=== PATIENT | female | born 1995 | race Caucasian/White ===

== ENCOUNTER 2017-01-21 16:44 | Emergency (ER) | payer OTHER ==
[2017-01-21 16:53] VITALS: BP 134/85; PULSE 120; BMI 30.1
[2017-01-21] MEDS ORDERED: KETOROLAC TROMETHAMINE 30 MG/1 ML VIAL IM ONE (18:42)
--- NOTE | 2017-01-21 18:42 | PDOC ---
History of Present Illness - General Chief Complaint: Toothache Stated Complaint: INFLAMMATION Time Seen by Provider: 01/21/17 18:28 History Source: Patient Exam Limitations: No Limitations - History of Present Illness Initial Comments: 01/21/17 18:42 This is a 21-year-old female without significant past medical history who presents today with left buccal pain for the past 3 days. She states since that time she's been unable to eat secondary to pain. She states probably 3 or 4 months ago she had similar problem on the right side of her mouth for which she was evaluated and given antibiotics. She reports fevers this morning although she did not check her temperature. Past History - Past Medical History Allergies/Adverse Reactions: Allergies Allergy/AdvReac Type Severity Reaction Status Date / Time No Known Allergies Allergy Verified 01/21/17 16:53 Home Medications: Ambulatory Orders Amox-Tr/K Cl [Augmentin - 875Mg Tablet] 1 tab PO BID #14 tablet 01/21/17 Other medical history: NONE - Suicide/Smoking/Psychosocial Hx Smoking History: Never smoked Hx Alcohol Use: No Drug/Substance Use Hx: No Substance Use Type: None Review of Systems - Review of Systems Able to Perform ROS?: Yes Is the patient limited [place] proficient: No Constitutional: No: Symptoms Reported HEENTM: Yes: See HPI Respiratory: No: Symptoms reported Cardiac (ROS): No: Symptoms Reported ABD/GI: No: Symptoms Reported : No: Symptoms Reported Musculoskeletal: No: Symptoms Reported Integumentary: No: Symptoms Reported Neurological: No: Symptoms reported *Physical Exam - Vital Signs Last Vital Signs Temp Pulse Resp BP Pulse Ox 100.4 F H 120 H 20 134/85 97 01/21/17 16:50 01/21/17 16:50 01/21/17 16:50 01/21/17 16:50 01/21/17 16:50 Medical Decision Making - Medical Decision Making 01/21/17 18:41 A/P: This is a 21-year-old female without significant past medical history who presents today with left buccal pain for the past 3 days. She states since that time she's been unable to eat secondary to pain. She states probably 3 or 4 months ago she had similar problem on the right side of her mouth for which she was evaluated and given antibiotics. She reports fevers this morning although she did not check her temperature. Examination of the oral cavity shows shows mucopurulent drainage into mouth. Left cold region swollen and tender to palpation. Fluctuant mass palpated on the buccal surface adjacent to the left maxilla. Unable to express from fluctuant mass. No tonsillar erythema or exudates noted. Uvula midline. Left TM pearly shaver with appropriate light reflex. Left auditory canal free of erythema and streaking. Diagnosis-oral abscess. I will obtain a CT of the facial bones and prescribed antibiotics as an outpatient. 01/21/17 21:[address] [facility]. There is air noted lateral to left mandible. I will treat patient with Augmentin 875 by mouth twice a day the next 10 days. Patient to follow-up with her primary doctor if symptoms do not improve within the next 3 days. I discussed the physical exam findings, ancillary test results and final diagnoses with the patient. I answered all of the patient's questions. The patient was satisfied with the care received and felt comfortable with the discharge plan and treatment plan. The patient will call her doctor within 96 hours to arrange follow-up and will return to the Emergency Department with any new, persistant or worsening symptoms. *DC/Admit/Observation/Transfer Diagnosis at time of Disposition: Abscess of mouth - Discharge Dispostion Disposition: HOME Condition at time of disposition: Stable Admit: No - Prescriptions Prescriptions: Amox-Tr/K Cl [Augmentin - 875Mg Tablet] 1 tab PO BID #14 tablet - Referrals Referrals: Sherley Scanlon [Primary Care Provider] - - Patient Instructions Additional Instructions: Make an appointment with a dentist to have full oral exam performed. Take Augmentin 875 mg twice a day until all medications are finished. Return to emergency department for any fevers, headache, inability to swallow, severe pain, or any other concerns. Thank you very much for choosing us to provide your acute medical needs.
[2017-01-21] MEDS ORDERED: KETOROLAC TROMETHAMINE 30 MG/1 ML VIAL ONE (18:46)
[2017-01-21 21:16] VITALS: TEMP 98.6
== END 2017-01-21 21:16 | disposition home or self-care (01) ==
LOC: JERFT 16:44
PROC: 3E0233Z Introduction of Anti-inflammatory into Muscle, Percutaneous Approach (ICD-10-PCS; principal; 2017-01-21)
DX: K12.2 Cellulitis and abscess of mouth (principal)
CPT/HCPCS: 70486-TC; 84703; 96372; 99281-25

== ENCOUNTER 2019-04-20 22:21 | Emergency (ER) | payer OTHER ==
[2019-04-20 22:53] VITALS: BP 135/77; PULSE 72; TEMP 98.1; BMI 29.2
--- NOTE | 2019-04-21 01:10 | PDOC ---
History of Present Illness - General Chief Complaint: Pain Stated Complaint: ABD PAIN Time Seen by Provider: 04/21/19 00:58 - History of Present Illness Initial Comments: Ms. Newsome is a 23 y/o female with PMH of gastritis presenting with bilateral flank pain and mid-sternal chest pain that started on Sunday. Reports that she has not had this pain before. Pain is non radiating, constant, and sharp. No pleuritic chest pain. Denies fever/cough/shortness of breath. Denies abdominal pain. Denies dysuria. No recent travel. No sick contacts. No OCPs. Past History - Past Medical History Allergies/Adverse Reactions: Allergies Allergy/AdvReac Type Severity Reaction Status Date / Time No Known Allergies Allergy Verified 04/20/19 22:40 Home Medications: Ambulatory Orders Sulfamethoxazole/Trimethoprim [Bactrim Ds -] 1 tab PO BID #14 tablet 04/21/19 COPD: No - Psycho Social/Smoking Cessation Hx Smoking History: Never smoked Hx Alcohol Use: No Drug/Substance Use Hx: No Substance Use Type: None Review of Systems - Review of Systems Comments:: GENERAL/CONSTITUTIONAL: No fever or chills. No weakness._ HEAD, EYES, EARS, NOSE AND THROAT: No change in vision. No change in hearing. No sore throat._ CARDIOVASCULAR: Reports mid sternal chest pain. No shortness of breath_ RESPIRATORY: Denies cough, hemoptysis_ GASTROINTESTINAL: Reports bilateral flank pain. No nausea, vomiting, diarrhea or constipation._ GENITOURINARY: No dysuria, frequency, or change in urination._ MUSCULOSKELETAL: No joint or muscle swelling or pain. No neck or back pain._ SKIN: No rash_ NEUROLOGIC: No headache, vertigo, loss of consciousness, or change in strength/ sensation._ ENDOCRINE: No increased thirst. No abnormal weight change_ HEMATOLOGIC/LYMPHATIC: No anemia, easy bleeding, or history of blood clots._ ALLERGIC/IMMUNOLOGIC: No hives or skin allergy._ *Physical Exam - Vital Signs Last Vital Signs Temp Pulse Resp BP Pulse Ox 98.1 F 72 18 135/77 100 04/20/19 22:40 04/20/19 22:40 04/20/19 22:40 04/20/19 22:40 04/20/19 22:40 - Physical Exam GENERAL: Awake, alert, and oriented to person/place/time, in no acute distress_ HEAD: No signs of trauma, normoc ephalic, atraumatic _ EYES: PERRLA, EOMI, sclera anicteric, conjunctiva clear_ ENT: Hearing grossly normal, nares patent, oropharynx clear without exudates. No uvular deviation. Moist mucosa_ NECK: Normal ROM, supple, no lymphadenopathy, JVD, or masses_ CHEST: Non reproducible LUNGS: No distress, speaks in full sentences, clear to auscultation bilaterally _ HEART: Regular rate and rhythm, normal S1 and S2, no murmurs appreciated, peripheral pulses normal and equal bilaterally._ ABDOMEN: Soft, TTP bilateral flanks, normoactive bowel sounds. No guarding, no rebound. No masses. EXTREMITIES: Normal inspection, Normal range of motion, no edema. No clubbing or cyanosis_ NEUROLOGICAL: Cranial nerves II through XII grossly intact. Normal speech, normal gait, no focal sensorimotor deficits _ SKIN: Warm, Dry, normal turgor, no rashes or lesions noted_ ED Treatment Course - LABORATORY CBC & Chemistry Diagram: 04/21/19 03:02 04/21/19 03:02 Medical Decision Making - Medical Decision Making 04/21/19 01:29 23F hx of gastritis presenting with bilateral flank pain that started yesterday. -cbc, cmp -ua, ucx, upreg -GI cocktail 04/21/19 05:06 Pt reassessed. Reports feeling better and that she wants to go home. EKG shows NSR, 65 bpm, no ST elevation/depression, QTc 403. Labs reviewed. UA shows signs of UTI. Will plan to d/c home with Bactrim for UTI. Laboratory Tests 04/21/19 04/21/19 04/21/19 03:02 03:02 03:15 WBC 11.2 H RBC 5.12 Hgb 15.0 Hct 45.5 H MCV 88.9 MCH 29.3 MCHC 32.9 RDW 13.8 Plt Count 374 MPV 8.4 Absolute Neuts (auto) 6.4 Neutrophils % 57.2 Lymphocytes % 33.6 Monocytes % 6.7 Eosinophils % 2.1 Basophils % 0.4 Nucleated RBC % 0 Sodium 140 Potassium 3.8 Chloride 106 Carbon Dioxide 23 Anion Gap 10 BUN 10.5 Creatinine 0.8 Est GFR (CKD-EPI)AfAm 120.44 Est GFR (CKD-EPI)NonAf 103.92 Random Glucose 96 Calcium 9.2 Total Bilirubin 0.4 AST 13 L ALT 24 Alkaline Phosphatase 74 Creatine Kinase 80 Troponin I < 0.02 Total Protein 9.2 H Albumin 4.6 Urine Color Urine Appearance Urine pH Ur Specific [place] Urine Protein Urine Glucose (UA) Urine Ketones Urine Blood Urine Nitrite Urine Bilirubin Urine Urobilinogen Ur Leukocyte Esterase Urine WBC (Auto) Urine RBC (Auto) Urine Casts (Auto) U Epithel Cells (Auto) Urine Bacteria (Auto) Urine HCG, Qual Negative 04/21/19 03:15 WBC RBC Hgb Hct MCV MCH MCHC RDW Plt Count MPV Absolute Neuts (auto) Neutrophils % Lymphocytes % Monocytes % Eosinophils % Basophils % Nucleated RBC % Sodium Potassium Chloride Carbon Dioxide Anion Gap BUN Creatinine Est GFR (CKD-EPI)AfAm Est GFR (CKD-EPI)NonAf Random Glucose Calcium Total Bilirubin AST ALT Alkaline Phosphatase Creatine Kinase Troponin I Total Protein Albumin Urine Color Yellow Urine Appearance Cloudy Urine pH 7.0 Ur Specific [place] 1.022 Urine Protein Negative Urine Glucose (UA) Negative Urine Ketones Negative Urine Blood Negative Urine Nitrite Negative Urine Bilirubin Negative Urine Urobilinogen 1.0 Ur Leukocyte Esterase 2+ H Urine WBC (Auto) 40 Urine RBC (Auto) 3.9 Urine Casts (Auto) 4 U Epithel Cells (Auto) 3.5 Urine Bacteria (Auto) 276.9 Urine HCG, Qual Discharge - Discharge Information Problems reviewed: Yes Clinical Impression/Diagnosis: Flank pain Condition: Stable Disposition: HOME - Admission No - Additional Discharge Information Prescriptions: Sulfamethoxazole/Trimethoprim [Bactrim Ds -] 1 tab PO BID #14 tablet - Follow up/Referral Referrals: ON STAFF,NOT [Primary Care Provider] - Cali Rachel MD [Staff Physician] - - Patient Discharge Instructions Patient Printed Discharge Instructions: DI for Urinary Tract Infection (UTI) Additional Instructions: Please take Bactrim 1 tab twice per day for 7 days. Please make a follow up appointment with your PCP if your symptoms do not improve. If you experience any new, worsening, or concerning symptoms, please return to the emergency department. - Post Discharge Activity
--- NOTE | 2019-04-21 02:14 | PDOC ---
Attending Attestation - Resident Resident Name: Mike Delacruz - ED Attending Attestation I have performed the following: I have examined & evaluated the patient, The case was reviewed & discussed with the resident, I agree w/resident's findings & plan - HPI HPI: 04/21/19 02:35 Ms. Newsome is a 23 y/o female with PMH of gastritis presenting with bilateral flank pain and mid-sternal chest pain that started on Sunday. Reports that she has not had this pain before. Pain is non radiating, constant, and sharp. No pleuritic chest pain. Denies fever/cough/shortness of breath. Denies abdominal pain. Denies dysuria. No recent travel. No sick contacts. No OCPs. Pt has epigastric pain due to gastritis. States that she has aPMHx fo gastritis. Pt has no vag disharge. She is not Pt has no dysuria. - Physicial Exam PE: 04/21/19 02:54 Pt has no fever No flank pain Minimal abdominal tenderness - Medical Decision Making 04/21/19 02:55 We will get labs and UA and make sure that pt is not . 04/21/19 03:29 CBC is normal Pregnany test normal 04/21/19 03:30 chem pending 04/21/19 04:30 Chem normal UA pending 04/21/19 06:03 UA+ for UTI; she will be treated with bactrim First 2 doses given in the ER as it is [facility] [place] and pharmacy is closed. Heart Score/ECG Review - ECG Intrepretation Rhythm: Regular Rhythm - [place]: Normal - P and CO Delta Wave(s) Present: No WPW: No - ST and T Early Repolarization: No Non Specific ST-T Wave changes: No - ECG Impressions Normal ECG: Yes Non-specific ST Elevation: No Ischemic Changes: No Bradycardia: No Torsades ivonne Pointes: No
[2019-04-21] MEDS ORDERED: FAMOTIDINE 20 MG/50 ML IVPB 20 MG/50 ML MG IVPB ONE ×2 (02:34→02:59)
[2019-04-21] MEDS ORDERED: LIDOCAINE VISCOUS 2% ORAL/TOP 20 ML UNIT-DOSE CUP MM ONE (02:34)
[2019-04-21] MEDS ORDERED: MAG HYDROX/AL HYDROX/SIMETH -MYLANTA- ORAL SUSPENSION PO ONE (02:34)
[2019-04-21] MEDS ORDERED: ACETAMINOPHEN 325 MG TABLET (FP) PO ONE (02:47)
[2019-04-21] MEDS ORDERED: MAG HYDROX/AL HYDROX/SIMETH 30 ML UNIT-DOSE CUP ONE (02:59)
[2019-04-21] MEDS ORDERED: FAMOTIDINE 20 MG TABLET PO ONE (03:10)
[2019-04-21] MEDS ORDERED: LIDOCAINE VISCOUS 2% ORAL/TOP 20 ML UNIT-DOSE CUP ONE (03:18)
[2019-04-21] MEDS ORDERED: FAMOTIDINE 20 MG TABLET ONE (03:18)
[2019-04-21] MEDS ORDERED: ACETAMINOPHEN 325 MG TABLET (FP) ONE (03:18)
[2019-04-21 03:19] LABS: BASO % 0.4 % (0-2.0); EOS % 2.1 % (0-4.5); HEMATOCRIT 45.5 % (32.4-45.2); LYMPH % 33.6 % (8-40); MCH 29.3 pg (25.7-33.7); MCHC 32.9 g/dl (32.0-36.0); MEAN CELL VOLUME 88.9 fl (80-96); MEAN PLT VOLUME 8.4 fl (7.5-11.1); MONO % 6.7 % (3.8-10.2); NEUT % 57.2 % (42.8-82.8); PLATELET COUNT 374 K/MM3 (134-434); RBC 5.12 M/mm3 (3.60-5.2); RDW 13.8 % (11.6-15.6); WHITE BLOOD COUNT 11.2 K/mm3 (4.0-10.0)
[2019-04-21 04:18] LABS: ALBUMIN 4.6 g/dl (3.4-5.0); ALK PHOS 74 U/L (45-117); ANION GAP 10 MMOL/L (8-16); BILIRUBIN,TOTAL 0.4 mg/dL (0.2-1); BLOOD UREA NITROGEN 10.5 mg/dL (7-18); CALCIUM 9.2 mg/dL (8.5-10.1); CHLORIDE 106 mmol/L (98-107); CO2 23 mmol/L (21-32); CREATININE 0.8 mg/dL (0.55-1.3); GLUCOSE,RANDOM 96 mg/dL (74-106); POTASSIUM 3.8 mmol/L (3.5-5.1); SGOT/AST 13 U/L (15-37); SGPT/ALT 24 U/L (13-61); SODIUM 140 mmol/L (136-145); TOT PROT 9.2 g/dl (6.4-8.2)
[2019-04-21 04:35] LABS: EPI CELLS 3.5 /HPF (0-5/HPF); HYALINE CASTS 4 /lpf (0-8); URINE APPEARANCE CLOUDY; URINE BACTERIA 276.9 /hpf (NEGATIVE); URINE BILIRUBIN NEGATIVE (NEGATIVE); URINE COLOR YELLOW; URINE GLUCOSE (UA) NEGATIVE (NEGATIVE); URINE KETONE NEGATIVE (NEGATIVE); URINE LEUK ESTERASE 2+ (NEGATIVE); URINE NITRITE NEGATIVE (NEGATIVE); URINE PROTEIN NEGATIVE (NEGATIVE); URINE WBC 40 /hpf (0-5)
[2019-04-21 04:40] LABS: URINE RBC 3.9 /hpf (0-4)
[2019-04-21] MEDS ORDERED: SULFAMETHOXAZOLE/TRIMETHOPRIM 800MG/160MG D.S. TABLET PO ONE (05:03)
[2019-04-21] MEDS ORDERED: SULFAMETHOXAZOLE/TRIMETHOPRIM 800MG/160MG D.S. TABLET ONE ×3 (05:33→05:40)
--- NOTE | 2019-04-21 09:55 | EKG ---
Test Reason : Blood Pressure : / mmHG Vent. Rate : 065 BPM Atrial Rate : 065 BPM P-R Int : 132 ms QRS Dur : 080 ms QT Int : 388 ms P-R-T Axes : 050 026 028 degrees QTc Int : 403 ms NORMAL SINUS RHYTHM NORMAL ECG WHEN COMPARED WITH ECG OF 06-JUN-2006 09:11, NO SIGNIFICANT CHANGE WAS FOUND Confirmed by EUSEBIO DANG MD ([id number]) on 04/21/2019 9:54:54 AM Referred By: Confirmed By:EUSEBIO DANG MD
== END 2019-04-21 05:43 | disposition home or self-care (01) ==
LOC: JER 22:21
DX: N39.0 Urinary tract infection, site not specified (principal); Z87.19 Personal history of other diseases of the digestive system
CPT/HCPCS: 36415; 80053; 81003; 82550; 84484; 84703; 85025; 93005; 93010; 99283-25

== ENCOUNTER 2021-08-13 06:15 | Inpatient (IN) | payer OTHER ==
[2021-08-13 08:23] LABS: HCG,QUALITATIVE URINE Negative
[2021-08-13] MEDS ORDERED: DEXTROSE 5%-NORMAL SALINE 1,000 ML IV SCH (09:45)
[2021-08-13] MEDS ORDERED: CEFTRIAXONE 1,000 MG in DEXTROSE 5%-WATER - 50 ML IVPB SCH (10:00)
[2021-08-13] MEDS ORDERED: cefTRIAXone SODIUM 1 GM VIAL ONE (10:06)
[2021-08-13] MEDS: ACETAMINOPHEN 1000 MG/100 ML BAG IVPB PRN ×2 (10:20→19:39)
[2021-08-13 11:09] LABS: INR 1.09 (0.83-1.09); PROTHROMBIN TIME (PATIENT) 12.6 SEC (9.7-13.0)
[2021-08-13 11:12] LABS: ACTIVATED PTT 31.6 SECONDS (25.2-36.5)
[2021-08-13 11:23] LABS: HEMATOCRIT 36.9 % (32.4-45.2); HEMOGLOBIN 12.6 G/dL (10.7-15.3); MCH 29.8 pg (25.7-33.7); MCHC 34.2 g/dl (32.0-36.0); MEAN PLT VOLUME 7.4 fl (7.5-11.1); PLATELET COUNT 488.3 10^3/uL (134-434); RBC 4.24 10^6/uL (3.60-5.2); RDW 13.9 % (11.6-15.6); WHITE BLOOD COUNT 8.5 10^3/uL (4.0-10.8)
[2021-08-13 11:40] LABS: ALBUMIN 3.6 g/dl (3.4-5.0); BILIRUBIN,TOTAL 0.4 mg/dl (0.2-1); CALCIUM 8.3 mg/dl (8.5-10); CREATININE 0.7 mg/dl (0.55-1.3); TOT PROT 7.6 g/dl (6.4-8.2)
[2021-08-13 14:12] VITALS: BMI 36.0
[2021-08-13] MEDS: DEXTROSE 5%-NORMAL SALINE 1,000 ML IV SCH (14:37)
[2021-08-13] MEDS: HEPARIN NA (PORCINE) 5,000 UNITS/ML 1ML VIAL SQ SCH (21:30)
[2021-08-14] MEDS: DEXTROSE 5%-NORMAL SALINE 1,000 ML IV SCH ×3 (04:50→19:56)
[2021-08-14] MEDS: ACETAMINOPHEN 1000 MG/100 ML BAG IVPB PRN ×3 (04:51→17:16)
[2021-08-14] MEDS ORDERED: CEFTRIAXONE 1 GM in DEXTROSE 5%-WATER - 50 ML IVPB SCH (09:31)
[2021-08-14] MEDS ORDERED: cefTRIAXone SODIUM 1 GM VIAL ONE (09:35)
[2021-08-14] MEDS ORDERED: DEXTROSE 5%-WATER - 50 ML IVPB ONE (09:35)
[2021-08-14] MEDS: HEPARIN NA (PORCINE) 5,000 UNITS/ML 1ML VIAL SQ SCH ×2 (09:38→21:37)
[2021-08-14 09:39] LABS: BASO % 0.3 % (0-2.0); EOS % 3.8 % (0-4.5); HEMATOCRIT 35.2 % (32.4-45.2); HEMOGLOBIN 11.6 GM/dL (10.7-15.3); LYMPH % 40.3 % (8-40); MCH 28.9 pg (25.7-33.7); MEAN CELL VOLUME 87.8 fl (80-96); MEAN PLT VOLUME 7.8 fl (7.5-11.1); MONO % 6.6 % (3.8-10.2); PLATELET COUNT 467 10^3/uL (134-434); RBC 4.01 M/mm3 (3.60-5.2); RDW 13.2 % (11.6-15.6); WHITE BLOOD COUNT 6.3 K/mm3 (4.0-10.0)
[2021-08-14 10:01] LABS: ALBUMIN 3.3 g/dl (3.4-5.0)
[2021-08-14 10:04] LABS: CREATININE 0.6 mg/dL (0.55-1.3)
[2021-08-14 10:05] LABS: BILIRUBIN,TOTAL 0.6 mg/dL (0.2-1); TOT PROT 7.5 g/dl (6.4-8.2)
[2021-08-15] MEDS: ACETAMINOPHEN 1000 MG/100 ML BAG IVPB PRN (00:28)
[2021-08-15] MEDS: DEXTROSE 5%-NORMAL SALINE 1,000 ML IV SCH (11:59)
[2021-08-15] MEDS ORDERED: BUPIVACAINE HCL/PF 0.5% (5MG/ML) 10 ML VIAL ONE (14:53)
[2021-08-15] MEDS ORDERED: MIDAZOLAM HCL 2 MG/2 ML SINGLE DOSE VIAL ONE (15:29)
[2021-08-15] MEDS ORDERED: PROPOFOL 20 ML ONE ×2 (15:29→17:17)
[2021-08-15] MEDS ORDERED: FENTANYL CITRATE/PF 50 MCG/ML VIAL ONE ×7 (15:29→18:26)
[2021-08-15] MEDS ORDERED: ROCURONIUM BROMIDE 50 MG/5 ML SYRINGE ONE (15:29)
[2021-08-15] MEDS ORDERED: ceFAZolin SODIUM 1 GM VIAL IVPB ONE (15:54)
[2021-08-15] MEDS ORDERED: BUPIVACAINE HCL/PF 0.5% (5 MG/ML) 30 ML VIAL IJ ONE ×2 (16:07→17:23)
[2021-08-15] MEDS ORDERED: ONDANSETRON 4 MG/2 ML VIAL IVPUSH PRN ×2 (16:30→18:24)
[2021-08-15] MEDS ORDERED: LACTATED RINGERS SOLUTION 1,000 ML IV SCH (16:30)
[2021-08-15] MEDS ORDERED: PROMETHAZINE HCL 25 MG/1 ML VIAL IVPUSH PRN ×2 (16:30→18:24)
[2021-08-15] MEDS ORDERED: ACETAMINOPHEN 1000 MG/100 ML BAG IVPB PRN ×2 (16:31→18:24)
[2021-08-15] MEDS ORDERED: GLYCOPYRROLATE 0.2 MG/1 ML VIAL ONE (16:55)
[2021-08-15] MEDS ORDERED: NEOSTIGMINE METHYLSULFATE 0.5 MG/ML - 10 ML MDV ONE (16:55)
[2021-08-15] MEDS ORDERED: KETOROLAC TROMETHAMINE 30 MG/1 ML VIAL ONE (17:38)
[2021-08-15] MEDS ORDERED: oxyCODONE HCL 5 MG TABLET PO PRN ×2 (18:24)
[2021-08-15] MEDS: LACTATED RINGERS SOLUTION 1,000 ML IV SCH (19:26)
[2021-08-16] MEDS: IBUPROFEN 800 MG/8 ML IJ IVPB SCH ×2 (00:02→06:28)
[2021-08-16] MEDS ORDERED: ACETAMINOPHEN 1000 MG/100 ML BAG IVPB SCH (04:00)
[2021-08-16 06:47] VITALS: TEMP 98.2
[2021-08-16] MEDS: LACTATED RINGERS SOLUTION 1,000 ML IV SCH (06:55)
[2021-08-16 09:47] LABS: BASO % 0.1 % (0-2.0); EOS % 0.1 % (0-4.5); HEMATOCRIT 32.5 % (32.4-45.2); HEMOGLOBIN 10.7 GM/dL (10.7-15.3); LYMPH % 23.4 % (8-40); MCH 28.6 pg (25.7-33.7); MCHC 32.8 g/dl (32.0-36.0); MEAN CELL VOLUME 87.3 fl (80-96); MEAN PLT VOLUME 7.2 fl (7.5-11.1); MONO % 5.2 % (3.8-10.2); NEUT % 71.2 % (42.8-82.8); PLATELET COUNT 523 10^3/uL (134-434); RBC 3.72 M/mm3 (3.60-5.2); RDW 13.4 % (11.6-15.6); WHITE BLOOD COUNT 9.7 K/mm3 (4.0-10.0)
[2021-08-16 10:02] LABS: BLOOD UREA NITROGEN 5.7 mg/dL (7-18); CALCIUM 8.3 mg/dL (8.5-10.1); MAGNESIUM 2.1 mg/dL (1.8-2.4)
[2021-08-16 10:05] LABS: CREATININE 0.6 mg/dL (0.55-1.3); PHOSPHOROUS 2.4 mg/dL (2.5-4.9)
[2021-08-16 10:06] LABS: BILIRUBIN,TOTAL 0.3 mg/dL (0.2-1)
[2021-08-16] MEDS ORDERED: ACETAMINOPHEN 325 MG TABLET (FP) PO PRN (11:54)
[2021-08-16] MEDS ORDERED: IBUPROFEN 400 MG TABLET (FP) PO PRN (11:55)
[2021-08-16] MEDS ORDERED: BENZOCAINE/MENTH/CETYLPYRD CL 1 EACH LOZENGE MM PRN (12:42)
[2021-08-16 19:14] VITALS: BP 128/70; PULSE 70
== END 2021-08-16 20:24 | disposition home or self-care (01) | DRG 263 ==
LOC: FER 06:15 → J5S 13:55
PROVIDERS: ADMIT Internal Medicine; ATTEND Internal Medicine
PROC: 0FT44ZZ Resection of Gallbladder, Percutaneous Endoscopic Approach (ICD-10-PCS; principal; 2021-08-15 14:30)
DX: K80.12 Calculus of gallbladder with acute and chronic cholecystitis without obstruction (principal); E66.9 Obesity, unspecified; Z68.36 Body mass index [BMI] 36.0-36.9, adult; R16.0 Hepatomegaly, not elsewhere classified
CPT/HCPCS: 0241U-QW; 36415; 71045-TC-FY; 76705-TC; 80053; 81003; 83735; 84100; 84703; 85025; 85027; 85610; 85730; 86850; 86900; 86901; 87804; 88304-TC; 93005; 93010; 94010; 94760; 99285-25; J1644

== ENCOUNTER 2023-06-16 21:01 | Emergency (ER) | payer OTHER ==
[2023-06-16 21:13] VITALS: BP 145/92; PULSE 105; RESP 16; TEMP 100; BMI 34.3
== END 2023-06-16 22:26 | disposition home or self-care (01) ==
LOC: FER 21:01
DX: J06.9 Acute upper respiratory infection, unspecified (principal); B34.9 Viral infection, unspecified; R05.9 Cough, unspecified; M79.10 Myalgia, unspecified site; R07.0 Pain in throat; Z20.822 Contact with and (suspected) exposure to COVID-19
CPT/HCPCS: 0241U-QW; 87651; 99283-25